=== PATIENT | male | born 1985 ===

== ENCOUNTER 2019-02-21 21:02 | Inpatient (IN) | payer MEDICAID, OTHER ==
[2019-02-21] MEDS ORDERED: Sodium Chloride 0.9% 1,000 ML IV STA (22:37)
[2019-02-21] MEDS ORDERED: Piperacillin/Tazobact 3.375 GM in Sodium Chloride 0.9% 100 ML IV STA (22:53)
--- NOTE | 2019-02-21 23:22 | ED PDOC ---
HPI: General Adult Time Seen by Provider: 02/21/19 22:35 Chief Complaint (Nursing): Fever Chief Complaint (Provider): Fever History Per: Patient History/Exam Limitations: no limitations Onset/Duration Of Symptoms: Days (2x) Current Symptoms Are (Timing): Still Present Severity: Moderate Additional Complaint(s): 33 year old male with a past medical history of morbid obesity and pre- diabetes presents to the ED for an evaluation of fevers and chills that started yesterday. Patient states that yesterday he started having generalized weakness, fevers, and chills. Patient states that today he had 4-5x episodes of non-bloody non-bilious vomiting. Patient states that he is unable to tolerate PO. Patient further reports that today he developed left leg redness and warmth, and a generalized itchy rash. Patient denies having diarrhea, cough, shortness of breath, chest pain, or taking medications prior to arrival. PMD: [facility] Past Medical History Reviewed: Historical Data, Nursing Documentation, Vital Signs Vital Signs: Last Vital Signs Temp 101.1 F H 02/21/19 21:19 Pulse 103 H 02/21/19 21:19 Resp 20 02/21/19 21:19 BP 164/75 H 02/21/19 21:19 Pulse Ox 95 02/21/19 21:19 MICHELLE Report Viewed: Yes - Medical History Other PMH: pre-diabetes, morbid obesity - Surgical History Surgical History: Appendectomy - Family History Family History: States: No Known Family Hx - Home Medications Home Medications: Ambulatory Orders Medication Instructions Recorded No Known Home Med 02/22/19 - Allergies Allergies/Adverse Reactions: Allergies Allergy/AdvReac Type Severity Reaction Status Date / Time No Known Allergies Allergy Verified 02/21/19 21:18 Review of Systems ROS Statement: Except As Marked, All Systems Reviewed And Found Negative Constitutional: Positive for: Fever, Chills, Weakness (generalized) Cardiovascular: Negative for: Chest Pain Respiratory: Negative for: Cough, Shortness of Breath Gastrointestinal: Positive for: Vomiting (4-5x episodes (non-bilious, non- bloody)). Negative for: Diarrhea Musculoskeletal: Positive for: Other (left leg redness and warmth) Skin: Positive for: Rash (generalized) Physical Exam - Reviewed Nursing Documentation Reviewed: Yes Vital Signs Reviewed: Yes - Physical Exam Appears: Positive for: Non-toxic, No Acute Distress. Negative for: Well (febrile, obese) Head Exam: Positive for: ATRAUMATIC, NORMOCEPHALIC Skin: Positive for: Warm, Dry, Rash (generalized erythema to the abdomen and buttocks.) Eye Exam: Positive for: Normal appearance Cardiovascular/Chest: Positive for: Tachycardia (regular rhythm) Respiratory: Positive for: Normal Breath Sounds Extremity: Positive for: Other (left lower extremity: warmth, erythema, indurat ion extending from ankle to mid-tibial surface.) Neurological/Psych: Positive for: Awake, Alert, Oriented (3x) - Laboratory Results Result Diagrams: 02/22/19 06:05 02/22/19 06:05 - ECG O2 Sat by Pulse Oximetry: 95 (RA) Pulse Ox Interpretation: Normal Medical Decision Making Medical Decision Makin:35 Initial impression: 33 year old male with fevers, chills, and cellulitis of the lower extremity. Initial plan: * US duplex Left lower extrm vein * CMP * lactic acid * udip * CBC with differential * ESR * PT/ PTT * blood culture * accucheck * influenza * urinalysis * IV NS 1,000 ml IV 1,000 mls/hr * toradol 30 mg IVP * tylenol 325 mg tab 975 mg PO * vancomycin inj 1 gm sodium chloride 0.9% 250 ml IVPB * zosyn 3.375 gm sodium chloride 0.9% 100 ml IV * reevaluation 00:33 US left lower extrm read and reviewed by radiologist Findings: Real-time ultrasound images of the deep venous system with Doppler evaluation. Normal compression, spontaneity and augmentation. Normal color Doppler. No intraluminal thrombus is seen. IMPRESSION: No evidence of deep venous thrombosis. 1:40 Labs show no clinically significant abnormalities with the exception of mild lymphocytosis. Report showed potassium and calcium abnormality which is provider's opinion appears dubious. Repeat BMP shows that this was a lab error. Patient to be admitted under for left lower extremity cellulitis and early sepsis. ScribeAttestation: Documented byMakenzie Jones, acting as a scribe for Vinny Ortiz MD. Provider ScribeAttestation: All medical record entries made by the Scribe were at my direction and personally dictated by me. I have reviewed the chart and agree that the record accurately reflects my personal performance of the history, physical exam, medical decision making, and the department course for this patient. I have also personally directed, reviewed, and agree with the discharge instructions and disposition. Disposition - Clinical Impression Clinical Impression: Cellulitis - Disposition Disposition Time: 00:45 Condition: STABLE - Pt Status Changed To: Hospital Disposition Of: Inpatient - Admit Certification Admit to Inpatient:: After my assessment, the patient will require hospitalization for at least two midnights. This is because of the severity of symptoms shown, intensity of services needed, and/or the medical risk in this patient being treated as an outpatient.
[2019-02-21] MEDS ORDERED: Vancomycin 1 g Inj ONE (23:41)
[2019-02-21] MEDS ORDERED: Piperacillin/Tazobact 3.375 gm Inj IVPB ONE (23:41)
[2019-02-22 00:19] LABS: BASO % 0.4 % (0.0-2.0); EOS % 0.2 % (0.0-4.0); HEMOGLOBIN 14.3 g/dL (12.0-18.0); LYMPH # 1.3 K/uL (1.0-4.3); LYMPH % 10.7 % (20.0-40.0); MEAN CORPUSCULAR HEMOGLOBIN 30.8 pg (27.0-31.0); MEAN CORPUSCULAR HGB CONC 34.2 g/dL (33.0-37.0); MEAN PLATELET VOLUME 8.5 fl (7.2-11.7); MONO % 8.5 % (0.0-10.0); NEUT # 9.4 K/uL (1.8-7.0); NEUT % 80.2 % (50.0-75.0); RBC 4.65 Mil/uL (4.40-5.90); RED CELL DISTRIBUTION WIDTH 14.3 % (11.5-14.5); WHITE BLOOD COUNT 11.7 K/uL (4.8-10.8)
[2019-02-22 00:23] LABS: INR 1.2; PROTHROMBIN TIME 13.2 Seconds (9.8-13.1)
[2019-02-22 00:25] LABS: PARTIAL THROMBOPLASTIN TIME 41.7 Seconds (25.6-37.1)
[2019-02-22 00:55] LABS: ALB/GLOB RATIO 1.2 (1.0-2.1); ALBUMIN 4.4 g/dL (3.5-5.0); ALT/SGPT 40 U/L (21-72); AST/SGOT 34 U/L (17-59); BLOOD UREA NITROGEN 18 mg/dl (9-20); CALCIUM 4.6 mg/dL (8.4-10.2); GFR NON-AFRICAN AMERICAN > 60
[2019-02-22] MEDS ORDERED: Dextrose 50% SYRINGE Inj (50 ml) IVP ONE ×2 (01:12)
[2019-02-22] MEDS ORDERED: Insulin Regular 100 units/ml IV ONE (01:12)
[2019-02-22] MEDS ORDERED: Sodium Bicarbonate 7.5% (0.9 MEQ/ML) 50ML INJ IV ONE (01:13)
[2019-02-22] MEDS ORDERED: Sod Polystyrene Sulf 15 gm/60 ml Susp PO STA (01:22)
[2019-02-22] MEDS ORDERED: Dextrose 50% SYRINGE Inj (50 ml) ONE (01:24)
[2019-02-22] MEDS ORDERED: Sodium Bicarbonate (8.4%) 50 Meq Syringe ONE (01:25)
[2019-02-22 01:31] LABS: BLOOD UREA NITROGEN 17 mg/dl (9-20); CALCIUM 8.2 mg/dL (8.4-10.2); GFR NON-AFRICAN AMERICAN > 60
--- NOTE | 2019-02-22 01:55 | CP.PCM.HP ---
<Deuce Joseph - Last Filed: 02/22/19 02:35> History of Present Illness - History of Present Illness History of Present Illness: 33 year old male with a PMH of morbid obesity and pre-diabetes presents to the ED c/o fevers and chills since Thursday. Patient states associated generalized weakness, fevers, sore throat and chills. He does not take his temp at home, but reports took some naproxen for fever. Also patient reports that yesterday he had 4-5x episodes nbnb vomiting and was unable to tolerate PO during the day. He reports that today he discovered left leg redness and pain since morning and also area is warm, he states generalized itchy rash for about 1 year ago. Otherwise he denies abdominal pain, cough, shortness of breath, chest pain, leg injury, insect bite, sick contacts, no urinary sx or changes in BM. PMD: [facility] PMH: Prediabetes, Morbid obesity PSH: appendectomy at age 10 FMH: father with HTN Meds: none NKDA SH: +etoh socially on wkends, denies tobacco or illicit drug use. ED course: - VS on arrival: BP 164/75; HR 103, febrile. - LE US duplex: negative for DVT; preliminar - CBC mild leukocytosis, CMP: hyperK, HypoCa, lactid acid wnl, ESR elevated - IV NS 1,000 ml IV bolus - toradol 30 mg IVP once, tylenol 975 mg PO once, vanco and zosyn IV once Present on Admission - Present on Admission Any Indicators Present on Admission: No Review of Systems - Constitutional Constitutional: Chills, Fever, Malaise. absent: Lethargy, Weight Loss - EENT Nose/Mouth/Throat: Sore Throat. absent: Nasal Congestion, Nasal Discharge, Throat Swelling - Cardiovascular Cardiovascular: absent: Chest Pain, Lightheadedness, Palpitations - Respiratory Respiratory: Cough. absent: Dyspnea, Wheezing - Gastrointestinal Gastrointestinal: Nausea, Vomiting. absent: Abdominal Pain, Diarrhea - Genitourinary Genitourinary: absent: Dysuria, Hematuria, Urinary Frequency - Integumentary Integumentary: Erythema, Pruritus, Rash, Swelling. absent: Jaundice Past Patient History - Past Social History Smoking Status: Never Smoked - PSYCHIATRIC Hx Substance Use: No - SURGICAL HISTORY Hx Appendectomy: Yes Meds Allergies/Adverse Reactions: Allergies Allergy/AdvReac Type Severity Reaction Status Date / Time No Known Allergies Allergy Verified 02/21/19 21:18 Physical Exam - Constitutional Appears: No Acute Distress, Other (Obese) - Head Exam Head Exam: NORMAL INSPECTION - Eye Exam Eye Exam: EOMI, PERRL. absent: Nystagmus - ENT Exam ENT Exam: Mucous Membranes Moist - Neck Exam Neck exam: Positive for: Full Rom, Normal Inspection. Negative for: Lymphadenopathy, Thyromegaly - Respiratory Exam Respiratory Exam: Clear to Auscultation Bilateral, NORMAL BREATHING PATTERN. absent: Respiratory Distress - Cardiovascular Exam Cardiovascular Exam: REGULAR RHYTHM, +S1, +S2. absent: Tachycardia, Systolic Murmur - GI/Abdominal Exam GI & Abdominal Exam: Normal Bowel Sounds. absent: Distended, Guarding, Tenderness Additional comments: Obese abdomen. - Extremities Exam Extremities exam: Positive for: pedal edema, pedal pulses present Additional comments: Left lower extremity: warmth,tender to light touch, erythema and induration extending from ankle to mid-tibial surface and medial aspect of leg. - Back Exam Back exam: NORMAL INSPECTION. absent: CVA tenderness (L), CVA tenderness (R) - Neurological Exam Neurological exam: Alert, CN II-XII Intact, Oriented x3 - Skin Skin Exam: Dry, Warm Additional comments: Several well demarked erythematous lesions over the abdomen and buttocks and left arm, itching. Results - Vital Signs Recent Vital Signs: Last Vital Signs Temp 98.6 F 02/22/19 00:52 Pulse 103 H 02/21/19 21:19 Resp 20 02/21/19 21:19 BP 164/75 H 02/21/19 21:19 Pulse Ox 95 02/22/19 01:47 - Labs Result Diagrams: 02/21/19 23:50 02/22/19 01:17 Labs: Laboratory Results - last 24 hr 02/21/19 02/21/19 02/21/19 23:50 23:50 23:50 WBC 11.7 H RBC 4.65 Hgb 14.3 Hct 41.9 MCV 90.0 MCH 30.8 MCHC 34.2 RDW 14.3 Plt Count 175 MPV 8.5 Neut % (Auto) 80.2 H Lymph % (Auto) 10.7 L [place] % (Auto) 8.5 Eos % (Auto) 0.2 Baso % (Auto) 0.4 Neut # (Auto) 9.4 H Lymph # (Auto) 1.3 [place] # (Auto) 1.0 H Eos # (Auto) 0.0 Baso # (Auto) 0.0 ESR 58 H PT INR APTT Sodium 136 Potassium 6.2 H* Chloride 101 Carbon Dioxide 22 Anion Gap 19 BUN 18 Creatinine 0.7 L Est GFR ( Amer) > 60 Est GFR (Non-Af Amer) > 60 POC Glucose (mg/dL) Random Glucose 131 H Lactic Acid Calcium 4.6 L* Total Bilirubin 0.6 AST 34 ALT 40 Alkaline Phosphatase 98 Total Protein 8.1 Albumin 4.4 Globulin 3.7 Albumin/Globulin Ratio 1.2 Influenza Typ A,B (EIA) Negative for flu a/b 02/21/19 02/21/19 02/22/19 23:50 23:50 00:08 WBC RBC Hgb Hct MCV MCH MCHC RDW Plt Count MPV Neut % (Auto) Lymph % (Auto) [place] % (Auto) Eos % (Auto) Baso % (Auto) Neut # (Auto) Lymph # (Auto) [place] # (Auto) Eos # (Auto) Baso # (Auto) ESR PT 13.2 H INR 1.2 APTT 41.7 H Sodium Potassium Chloride Carbon Dioxide Anion Gap BUN Creatinine Est GFR ( Amer) Est GFR (Non-Af Amer) POC Glucose (mg/dL) 149 H Random Glucose Lactic Acid 1.0 Calcium Total Bilirubin AST ALT Alkaline Phosphatase Total Protein Albumin Globulin Albumin/Globulin Ratio Influenza Typ A,B (EIA) 02/22/19 02/22/19 01:17 01:19 WBC RBC Hgb Hct MCV MCH MCHC RDW Plt Count MPV Neut % (Auto) Lymph % (Auto) [place] % (Auto) Eos % (Auto) Baso % (Auto) Neut # (Auto) Lymph # (Auto) [place] # (Auto) Eos # (Auto) Baso # (Auto) ESR PT INR APTT Sodium 136 Potassium 3.3 L Chloride 105 Carbon Dioxide 22 Anion Gap 12 BUN 17 Creatinine 0.7 L Est GFR ( Amer) > 60 Est GFR (Non-Af Amer) > 60 POC Glucose (mg/dL) Random Glucose 140 H Lactic Acid Calcium 8.2 L 8.1 L Total Bilirubin AST ALT Alkaline Phosphatase Total Protein Albumin Globulin Albumin/Globulin Ratio Influenza Typ A,B (EIA) Assessment & Plan - Assessment and Plan (Free Text) Assessment: 33 yo male patient with PMH fo Pre DM admitted due to LLE cellulitis/Sepsis. Plan: Left lower extremity cellulitis Sepsis - Admit to med/surg - VSS, febrile - WBC 11.7, ESR 58, lactic acid 1.0 - LLE US: negative for DVT - s/p vanco and zosyn IV in ED - continue vanco IV q12h - Tylenol prn for fever - Pain management - f/u blood culture - labs in am Hypokalemia/hypocalcemia - Initially K+ elevated - repleted - s/p IVF - f/u BMP Tinea corporis - Clotrimazole top BID h/o Prediabetes - diet controlled - f/u A1C Morbid Obesity PPx DVT: lovenox 60mg daily (weight based) GI: protonix Case seen and examined with Dr Juan. <Stan Juan - Last Filed: 02/22/19 09:20> Results - Vital Signs Recent Vital Signs: Last Vital Signs Temp 98.7 F 02/22/19 09:07 Pulse 79 02/22/19 09:07 Resp 20 02/22/19 09:07 BP 145/80 02/22/19 09:07 Pulse Ox 96 02/22/19 09:07 - Labs Result Diagrams: 02/22/19 06:05 02/22/19 06:05 Labs: Laboratory Results - last 24 hr 02/21/19 02/21/19 02/21/19 23:50 23:50 23:50 WBC 11.7 H RBC 4.65 Hgb 14.3 Hct 41.9 MCV 90.0 MCH 30.8 MCHC 34.2 RDW 14.3 Plt Count 175 MPV 8.5 Neut % (Auto) 80.2 H Lymph % (Auto) 10.7 L [place] % (Auto) 8.5 Eos % (Auto) 0.2 Baso % (Auto) 0.4 Neut # (Auto) 9.4 H Lymph # (Auto) 1.3 [place] # (Auto) 1.0 H Eos # (Auto) 0.0 Baso # (Auto) 0.0 ESR 58 H PT INR APTT Sodium 136 Potassium 6.2 H* Chloride 101 Carbon Dioxide 22 Anion Gap 19 BUN 18 Creatinine 0.7 L Est GFR ( Amer) > 60 Est GFR (Non-Af Amer) > 60 POC Glucose (mg/dL) Random Glucose 131 H Lactic Acid Calcium 4.6 L* Total Bilirubin 0.6 AST 34 ALT 40 Alkaline Phosphatase 98 Total Protein 8.1 Albumin 4.4 Globulin 3.7 Albumin/Globulin Ratio 1.2 Influenza Typ A,B (EIA) Negative for flu a/b 02/21/19 02/21/19 02/22/19 23:50 23:50 00:08 WBC RBC Hgb Hct MCV MCH MCHC RDW Plt Count MPV Neut % (Auto) Lymph % (Auto) [place] % (Auto) Eos % (Auto) Baso % (Auto) Neut # (Auto) Lymph # (Auto) [place] # (Auto) Eos # (Auto) Baso # (Auto) ESR PT 13.2 H INR 1.2 APTT 41.7 H Sodium Potassium Chloride Carbon Dioxide Anion Gap BUN Creatinine Est GFR ( Amer) Est GFR (Non-Af Amer) POC Glucose (mg/dL) 149 H Random Glucose Lactic Acid 1.0 Calcium Total Bilirubin AST ALT Alkaline Phosphatase Total Protein Albumin Globulin Albumin/Globulin Ratio Influenza Typ A,B (EIA) 02/22/19 02/22/19 02/22/19 01:17 01:19 06:05 WBC 9.3 RBC 4.27 L Hgb 13.3 Hct 39.1 MCV 91.6 MCH 31.2 H MCHC 34.0 RDW 14.3 Plt Count 157 MPV 8.2 Neut % (Auto) 75.3 H Lymph % (Auto) 13.5 L [place] % (Auto) 10.6 H Eos % (Auto) 0.3 Baso % (Auto) 0.3 Neut # (Auto) 7.0 Lymph # (Auto) 1.3 [place] # (Auto) 1.0 H Eos # (Auto) 0.0 Baso # (Auto) 0.0 ESR PT INR APTT Sodium 136 Potassium 3.3 L Chloride 105 Carbon Dioxide 22 Anion Gap 12 BUN 17 Creatinine 0.7 L Est GFR ( Amer) > 60 Est GFR (Non-Af Amer) > 60 POC Glucose (mg/dL) Random Glucose 140 H Lactic Acid Calcium 8.2 L 8.1 L Total Bilirubin AST ALT Alkaline Phosphatase Total Protein Albumin Globulin Albumin/Globulin Ratio Influenza Typ A,B (EIA) 02/22/19 06:05 WBC RBC Hgb Hct MCV MCH MCHC RDW Plt Count MPV Neut % (Auto) Lymph % (Auto) [place] % (Auto) Eos % (Auto) Baso % (Auto) Neut # (Auto) Lymph # (Auto) [place] # (Auto) Eos # (Auto) Baso # (Auto) ESR PT INR APTT Sodium 138 Potassium 3.5 L Chloride 105 Carbon Dioxide 23 Anion Gap 14 BUN 17 Creatinine 0.6 L Est GFR ( Amer) > 60 Est GFR (Non-Af Amer) > 60 POC Glucose (mg/dL) Random Glucose 119 H Lactic Acid Calcium 8.3 L Total Bilirubin AST ALT Alkaline Phosphatase Total Protein Albumin Globulin Albumin/Globulin Ratio Influenza Typ A,B (EIA) Attending/Attestation - Attestation I have personally seen and examined this patient.: Yes I have fully participated in the care of the patient.: Yes I have reviewed all pertinent clinical information: Yes Notes (Text): 02/22/19 09:09 i saw, examined and discussed this patient with Dr Reese Joseph. I agree with the assessment and plan outlined. This is a 33 years old Obese male with hx of being prediabetic, comes with painful erythema 8cm in diameter at the susan-medial distal left leg. This is associated with fever and chills. The exam showed erythematous streaks ascending the medial leg to the medial thighs. The patient is being treated for cellulitis with lymphangitis and Sepsis. He received Vancomycin and Zosyn in the ED. We will continue with Vancomycin because of the possibility of MRSA . There is no drainage for wound culture. Follow blood culture and we will do a MRSA nasal swab. We will also treat the Tinea Corporis with Clotrimazole. The patient has Hyperglycemia. Follow HbA1c Stan Juan MD
[2019-02-22] MEDS ORDERED: Potassium Chloride 20 mEq ER Tab PO ONE ×2 (02:46→13:48)
[2019-02-22 06:15] LABS: BASO % 0.3 % (0.0-2.0); EOS % 0.3 % (0.0-4.0); HEMOGLOBIN 13.3 g/dL (12.0-18.0); LYMPH # 1.3 K/uL (1.0-4.3); LYMPH % 13.5 % (20.0-40.0); MEAN CELL VOLUME 91.6 fl (80.0-94.0); MEAN CORPUSCULAR HEMOGLOBIN 31.2 pg (27.0-31.0); MEAN PLATELET VOLUME 8.2 fl (7.2-11.7); MONO % 10.6 % (0.0-10.0); NEUT % 75.3 % (50.0-75.0); NRBC % 0.1 % (0.0-0.0); RBC 4.27 Mil/uL (4.40-5.90); RED CELL DISTRIBUTION WIDTH 14.3 % (11.5-14.5); WHITE BLOOD COUNT 9.3 K/uL (4.8-10.8)
[2019-02-22 06:28] LABS: BLOOD UREA NITROGEN 17 mg/dl (9-20); CALCIUM 8.3 mg/dL (8.4-10.2); GFR NON-AFRICAN AMERICAN > 60
[2019-02-22] MEDS: Enoxaparin 60 mg Syringe SC SCH (08:33)
[2019-02-22] MEDS ORDERED: Enoxaparin 40 mg Syringe SC SCH (09:00)
[2019-02-22 09:08] VITALS: RESP 20
--- NOTE | 2019-02-22 10:03 | CARD ---
APPROVED REPORT Date of service: 02/22/2019 EKG Measurement Heart [id number] <Conclusion> Normal sinus rhythm Nonspecific T wave abnormality Abnormal ECG
--- NOTE | 2019-02-22 11:19 | CP.PCM.PN ---
<Nichole Magana - Last Filed: 02/22/19 13:13> Subjective - Date & Time of Evaluation Date of Evaluation: 02/22/19 Time of Evaluation: 13:14 - Subjective Subjective: Pt is a 33yo M hx of prediabetes, morbid obesity admitted due to cellulitis of L lower extremity, sepsis. Reports he is feeling well. Reports L lower extremity is painful. Pt also reports diffuse pruritic body rash in circular pattern for last 3 months, has been using cream without relief. Tolerating oral take. Denies F/C/CP/SOB/N/V/D/C Objective - Vital Signs/Intake and Output Vital Signs (last 24 hours): Temp Pulse Resp BP Pulse Ox 98.7 F 79 20 145/80 96 02/22/19 09:07 02/22/19 09:07 02/22/19 09:07 02/22/19 09:07 02/22/19 09:07 - Medications Medications: Current Medications Acetaminophen (Tylenol 325mg Tab) 650 mg PO Q6 PRN PRN Reason: Pain, Mild (1-3) Acetaminophen (Tylenol 325mg Tab) 650 mg PO Q6 PRN PRN Reason: Fever >100.4 F Clotrimazole (Lotrimin 1% Cream) 1 applic TOP BID [facility] Last Admin: 02/22/19 08:33 Dose: 1 applic Enoxaparin Sodium (Lovenox) 60 mg SC DAILY [facility]; Protocol Last Admin: 02/22/19 08:33 Dose: 60 mg Vancomycin HCl 1 gm/ Sodium (Chloride) 250 mls @ 166.667 mls/hr IVPB Q12 [facility]; Protocol Last Admin: 02/22/19 09:20 Dose: 166.667 mls/hr Itraconazole (Sporanox) 200 mg PO DAILY [facility]; Protocol Stop: 03/01/19 10:46 Ketorolac Tromethamine (Toradol) 15 mg IVP Q6 PRN PRN Reason: Pain, moderate (4-7) Ketorolac Tromethamine (Toradol) 30 mg IVP Q6 PRN PRN Reason: Pain, severe (8-10) Ondansetron HCl (Zofran Inj) 4 mg IVP Q6 PRN PRN Reason: Nausea/Vomiting Pantoprazole Sodium (Protonix Inj) 40 mg IVP DAILY [facility] Last Admin: 02/22/19 08:33 Dose: 40 mg - Labs Labs: 02/22/19 06:05 02/22/19 06:05 PT 13.2 Seconds (9.8-13.1) H 02/21/19 23:50 INR 1.2 02/21/19 23:50 APTT 41.7 Seconds (25.6-37.1) H 02/21/19 23:50 - Constitutional Appears: Non-toxic, No Acute Distress - Head Exam Head Exam: ATRAUMATIC - Eye Exam Eye Exam: EOMI - ENT Exam ENT Exam: Mucous Membranes Moist - Respiratory Exam Respiratory Exam: Clear to Ausculation Bilateral. absent: Rales, Rhonchi, Wheezes - Cardiovascular Exam Cardiovascular Exam: RRR, +S1, +S2 - GI/Abdominal Exam GI & Abdominal Exam: Soft, Normal Bowel Sounds. absent: Tenderness Additional comments: indurated panus inguinal region - Extremities Exam Extremities Exam: Calf Tenderness, Tenderness Additional comments: LLE erythema, swelling,tender to palpation, warm. No drainage. - Neurological Exam Neurological Exam: Alert, Awake - Skin Additional comments: Diffuse body circular raised rash with central clearing. Assessment and Plan - Assessment and Plan (Free Text) Assessment: Pt is a 33 yo male patient with PMH for Pre DM morbid obesity admitted due to LLE cellulitis/Sepsis. Plan: Left lower extremity cellulitis Sepsis - WBC 9.3, ESR 58, lactic acid 1.0 - LLE US: negative for DVT - s/p vanco and zosyn IV in ED - continue vanco IV q12h - Tylenol prn for fever - Pain management - f/u blood culture and MRSA - f/u CBC, vanc trough in AM Hypokalemia/hypocalcemia - K 3.5 - KCL 20mg PO - s/p IVF - f/u BMP Tinea corporis - Itraconazole 200mg PO daily - Clotrimazole top BID h/o Prediabetes - diet controlled - Hga1c 6.3 Morbid Obesity -discussed diet and excersize Diet Regular GI PPx -protonix DVT ppx -lovenox 60mg daily SC <Lila Joseph - Last Filed: 02/25/19 20:50> Objective - Vital Signs/Intake and Output Vital Signs (last 24 hours): Temp Pulse Resp BP Pulse Ox 98 F 75 20 126/83 98 04/24/19 08:19 02/23/19 08:19 02/23/19 08:19 02/23/19 08:19 02/23/19 08:19 - Labs Labs: 02/23/19 08:40 02/23/19 08:40 PT 13.2 Seconds (9.8-13.1) H 02/21/19 23:50 INR 1.2 02/21/19 23:50 APTT 41.7 Seconds (25.6-37.1) H 02/21/19 23:50 Attending/Attestation - Attestation I have personally seen and examined this patient.: Yes I have fully participated in the care of the patient.: Yes I have reviewed all pertinent clinical information, including history, physical exam and plan: Yes Notes (Text): agree with findings and plan as above.
--- NOTE | 2019-02-22 13:27 | US ---
Date of service: 02/22/2019 HISTORY: left LE swelling. PRIORS: None. FINDINGS: 2-D, color and duplex Doppler analysis of the lower extremity venous circulation using routine protocol from the femoral veins through the popliteal veins. Venous compressibility: Normal. Flow and augmentation patterns: Normal. Visualized veins upper third of calf: Normal. Lopes cyst: None. Note is made of multiple enlarged left inguinal lymph nodes measuring up to 4 mm in cortical thickness. Likely reactive. IMPRESSION: No sonographic or Doppler evidence for DVT in left lower extremity. Left inguinal lymphadenopathy noted. The preliminary findings for this examination were reported by [facility] at 12:33 a.m. on 02/22/2019. There is concurrence of this report with the preliminary findings.
[2019-02-22 20:52] VITALS: BMI 48.9
[2019-02-23 08:19] VITALS: BP 126/83; PULSE 75; TEMP 98; O2SAT 98
[2019-02-23] MEDS: Enoxaparin 60 mg Syringe SC SCH (08:25)
[2019-02-23 09:13] LABS: BASO # 0.1 K/uL (0.0-0.2); BASO % 0.8 % (0.0-2.0); EOS # 0.2 K/uL (0.0-0.7); EOS % 2.7 % (0.0-4.0); HEMOGLOBIN 13.7 g/dL (12.0-18.0); LYMPH # 1.6 K/uL (1.0-4.3); LYMPH % 24.8 % (20.0-40.0); MEAN CELL VOLUME 90.6 fl (80.0-94.0); MEAN CORPUSCULAR HEMOGLOBIN 30.4 pg (27.0-31.0); MEAN CORPUSCULAR HGB CONC 33.5 g/dL (33.0-37.0); MEAN PLATELET VOLUME 8.3 fl (7.2-11.7); MONO # 0.8 K/uL (0.0-0.8); MONO % 11.5 % (0.0-10.0); NEUT % 60.2 % (50.0-75.0); NRBC % 0.1 % (0.0-0.0); RBC 4.53 Mil/uL (4.40-5.90); RED CELL DISTRIBUTION WIDTH 14.4 % (11.5-14.5); WHITE BLOOD COUNT 6.6 K/uL (4.8-10.8)
[2019-02-23 09:23] LABS: BLOOD UREA NITROGEN 13 mg/dl (9-20); CALCIUM 8.8 mg/dL (8.4-10.2); GFR NON-AFRICAN AMERICAN > 60
[2019-02-23] MEDS ORDERED: Vancomycin 1.5 GM in Sodium Chloride 0.9% 500 ML IVPB SCH (09:57)
--- NOTE | 2019-02-23 10:23 | CP.PCM.PN ---
Objective - Vital Signs/Intake and Output Vital Signs (last 24 hours): Temp Pulse Resp BP Pulse Ox 98 F 75 20 126/83 98 02/23/19 08:19 02/23/19 08:19 02/23/19 08:19 02/23/19 08:19 02/23/19 08:19 - Medications Medications: Current Medications Acetaminophen (Tylenol 325mg Tab) 650 mg PO Q6 PRN PRN Reason: Pain, Mild (1-3) Acetaminophen (Tylenol 325mg Tab) 650 mg PO Q6 PRN PRN Reason: Fever >100.4 F Enoxaparin Sodium (Lovenox) 60 mg SC DAILY [facility]; Protocol Last Admin: 02/23/19 08:25 Dose: 60 mg Vancomycin HCl 1.5 gm/ Sodium (Chloride) 500 mls @ 250 mls/hr IVPB Q12 [facility]; Protocol Itraconazole (Sporanox) 200 mg PO DAILY [facility]; Protocol Stop: 03/01/19 10:46 Last Admin: 02/23/19 08:26 Dose: 200 mg Ketorolac Tromethamine (Toradol) 15 mg IVP Q6 PRN PRN Reason: Pain, moderate (4-7) Last Admin: 02/22/19 19:31 Dose: 15 mg Ketorolac Tromethamine (Toradol) 30 mg IVP Q6 PRN PRN Reason: Pain, severe (8-10) Ondansetron HCl (Zofran Inj) 4 mg IVP Q6 PRN PRN Reason: Nausea/Vomiting Pantoprazole Sodium (Protonix Inj) 40 mg IVP DAILY [facility] Last Admin: 02/23/19 08:26 Dose: 40 mg - Labs Labs: 02/23/19 08:40 02/23/19 08:40 PT 13.2 Seconds (9.8-13.1) H 02/21/19 23:50 INR 1.2 02/21/19 23:50 APTT 41.7 Seconds (25.6-37.1) H 02/21/19 23:50
--- NOTE | 2019-02-23 11:01 | CP.PCM.DIS ---
<Nichole Magana - Last Filed: 02/23/19 14:29> Provider - Provider Date of Admission: 02/22/19 00:53 Attending physician: Stan Juan Primary care physician: Maximus Melo Time Spent in preparation of Discharge (in minutes): 10 Diagnosis - Discharge Diagnosis (1) Cellulitis Status: Acute Comment: continue with outpt clindamycin. Follow up with Maximus melo in 1 week (2) Tinea corporis Status: Acute Comment: continue with outpt itraconazole. F/u with Maximus Melo in 1 week Hospital Course - Lab Results Lab Results: Micro Results 02/21/19 23:55 Blood-Venous Blood Culture - Preliminary NO GROWTH AFTER 24 HOURS 02/21/19 23:30 Blood-Venous Blood Culture - Preliminary NO GROWTH AFTER 24 HOURS Most Recent Lab Values WBC 6.6 K/uL (4.8-10.8) 02/23/19 08:40 RBC 4.53 Mil/uL (4.40-5.90) 02/23/19 08:40 Hgb 13.7 g/dL (12.0-18.0) 02/23/19 08:40 Hct 41.0 % (35.0-51.0) 02/23/19 08:40 MCV 90.6 fl (80.0-94.0) 02/23/19 08:40 MCH 30.4 pg (27.0-31.0) 02/23/19 08:40 MCHC 33.5 g/dL (33.0-37.0) 02/23/19 08:40 RDW 14.4 % (11.5-14.5) 02/23/19 08:40 Plt Count 196 K/uL (130-400) 02/23/19 08:40 MPV 8.3 fl (7.2-11.7) 02/23/19 08:40 Neut % (Auto) 60.2 % (50.0-75.0) 02/23/19 08:40 Lymph % (Auto) 24.8 % (20.0-40.0) 02/23/19 08:40 Delta % (Auto) 11.5 % (0.0-10.0) H 02/23/19 08:40 Eos % (Auto) 2.7 % (0.0-4.0) 02/23/19 08:40 Baso % (Auto) 0.8 % (0.0-2.0) 02/23/19 08:40 Neut # (Auto) 4.0 K/uL (1.8-7.0) 02/23/19 08:40 Lymph # (Auto) 1.6 K/uL (1.0-4.3) 02/23/19 08:40 Delta # (Auto) 0.8 K/uL (0.0-0.8) 02/23/19 08:40 Eos # (Auto) 0.2 K/uL (0.0-0.7) 02/23/19 08:40 Baso # (Auto) 0.1 K/uL (0.0-0.2) 02/23/19 08:40 ESR 58 mm/hr (0-15) H 02/21/19 23:50 PT 13.2 Seconds (9.8-13.1) H 02/21/19 23:50 INR 1.2 02/21/19 23:50 APTT 41.7 Seconds (25.6-37.1) H 02/21/19 23:50 Sodium 137 mmol/l (132-148) 02/23/19 08:40 Potassium 3.8 MMOL/L (3.6-5.0) 02/23/19 08:40 Chloride 105 mmol/L (98-107) 02/23/19 08:40 Carbon Dioxide 24 mmol/L (22-30) 02/23/19 08:40 Anion Gap 12 (10-20) 02/23/19 08:40 BUN 13 mg/dl (9-20) 02/23/19 08:40 Creatinine 0.6 mg/dl (0.8-1.5) L 02/23/19 08:40 Est GFR ( Amer) > 60 02/23/19 08:40 Est GFR (Non-Af Amer) > 60 02/23/19 08:40 POC Glucose (mg/dL) 149 mg/dL (65-110) H 02/22/19 00:08 Random Glucose 117 mg/dL (75-110) H 02/23/19 08:40 Hemoglobin A1c 6.3 % (4.2-6.5) 02/22/19 06:05 Lactic Acid 1.0 mmol/L (0.7-2.1) 02/21/19 23:50 Calcium 8.8 mg/dL (8.4-10.2) 02/23/19 08:40 Total Bilirubin 0.6 mg/dl (0.2-1.3) 02/21/19 23:50 AST 34 U/L (17-59) 02/21/19 23:50 ALT 40 U/L (21-72) 02/21/19 23:50 Alkaline Phosphatase 98 U/L (38-126) 02/21/19 23:50 Total Protein 8.1 G/DL (6.3-8.2) 02/21/19 23:50 Albumin 4.4 g/dL (3.5-5.0) 02/21/19 23:50 Globulin 3.7 gm/dL (2.2-3.9) 02/21/19 23:50 Albumin/Globulin Ratio 1.2 (1.0-2.1) 02/21/19 23:50 Vancomycin Trough < 5.0 ug/mL (5.0-10.0) L 02/23/19 08:40 Influenza Typ A,B (EIA) Negative for flu a/b (NEGATIVE) 02/21/19 23:50 - Hospital Course Hospital Course: Pt is a 33yo M hx of prediabetes, morbid obesity admitted due to cellulitis of L lower extremity, sepsis, and tinea corporis on 02/22/19. L lower extremity was painful with calf tenderness and he reported a diffuse pruritic body rash in circular pattern for last 3 months, had been using cream without relief. IN ED: LE U/S negative for DVT, CBC mild leukocytosis, CMP: hyperK, HypoCa, lactid acid wnl, influenza negative, ESR 58, received vanco and zosyn, blood cx no growth at 24hrs, MRSA nose swab pending. Pt doing well and can continue outpt therapy. Pt is hemodynamically stable for discharge with clindamycin, itrazonazole, omeprazole, and ibuprofen, follow up with [facility] in 1 week. Discharge Exam - Head Exam Head Exam: ATRAUMATIC, NORMAL INSPECTION - Eye Exam Eye Exam: EOMI - ENT Exam ENT Exam: Mucous Membranes Moist - Respiratory Exam Respiratory Exam: Clear to PA & Lateral. absent: Rales, Rhonchi, Wheezes - Cardiovascular Exam Cardiovascular Exam: RRR, +S1, +S2 - GI/Abdominal Exam GI & Abdominal Exam: Normal Bowel Sounds. absent: Tenderness - Extremities Exam Additional comments: LLE erythema, swelling,tender to palpation, warm. No drainage. - Skin Additional comments: Diffuse body circular raised rash with central clearing. Discharge Plan - Discharge Medications Prescriptions: Clindamycin [Cleocin] 300 mg PO Q6H 8 Days #32 cap Ibuprofen [Motrin Tab] 600 mg PO Q8H #20 tab Itraconazole [Sporanox] 200 mg PO DAILY #10 cap Omeprazole 40 mg PO DAILY #10 capsule.dr - Follow Up Plan Condition: STABLE Disposition: HOME/ ROUTINE Instructions: Fungal Skin Rash (DC), Cellulitis (DC) Additional Instructions: hacer mayo en [facility] [place] dentro de 1 semana Referrals: [place] [facility] [Outside] [facility] [Outside] <Lila Joseph - Last Filed: 02/25/19 20:49> Provider - Provider Date of Admission: 02/22/19 00:53 Attending physician: Stan Juan [facility] Course - Lab Results Lab Results: Micro Results 02/21/19 23:55 Blood-Venous Blood Culture - Preliminary NO GROWTH AFTER 3 DAYS 02/21/19 23:30 Blood-Venous Blood Culture - Preliminary NO GROWTH AFTER 3 DAYS 02/22/19 09:30 Nose MRSA Culture (Admit) - Final MRSA NOT DETECTED Most Recent Lab Values WBC 6.6 K/uL (4.8-10.8) 02/23/19 08:40 RBC 4.53 Mil/uL (4.40-5.90) 02/23/19 08:40 Hgb 13.7 g/dL (12.0-18.0) 02/23/19 08:40 Hct 41.0 % (35.0-51.0) 02/23/19 08:40 MCV 90.6 fl (80.0-94.0) 02/23/19 08:40 MCH 30.4 pg (27.0-31.0) 02/23/19 08:40 MCHC 33.5 g/dL (33.0-37.0) 02/23/19 08:40 RDW 14.4 % (11.5-14.5) 02/23/19 08:40 Plt Count 196 K/uL (130-400) 02/23/19 08:40 MPV 8.3 fl (7.2-11.7) 02/23/19 08:40 Neut % (Auto) 60.2 % (50.0-75.0) 02/23/19 08:40 Lymph % (Auto) 24.8 % (20.0-40.0) 02/23/19 08:40 Delta % (Auto) 11.5 % (0.0-10.0) H 02/23/19 08:40 Eos % (Auto) 2.7 % (0.0-4.0) 02/23/19 08:40 Baso % (Auto) 0.8 % (0.0-2.0) 02/23/19 08:40 Neut # (Auto) 4.0 K/uL (1.8-7.0) 02/23/19 08:40 Lymph # (Auto) 1.6 K/uL (1.0-4.3) 02/23/19 08:40 Delta # (Auto) 0.8 K/uL (0.0-0.8) 02/23/19 08:40 Eos # (Auto) 0.2 K/uL (0.0-0.7) 02/23/19 08:40 Baso # (Auto) 0.1 K/uL (0.0-0.2) 02/23/19 08:40 ESR 58 mm/hr (0-15) H 02/21/19 23:50 PT 13.2 Seconds (9.8-13.1) H 02/21/19 23:50 INR 1.2 02/21/19 23:50 APTT 41.7 Seconds (25.6-37.1) H 02/21/19 23:50 Sodium 137 mmol/l (132-148) 02/23/19 08:40 Potassium 3.8 MMOL/L (3.6-5.0) 02/23/19 08:40 Chloride 105 mmol/L (98-107) 02/23/19 08:40 Carbon Dioxide 24 mmol/L (22-30) 02/23/19 08:40 Anion Gap 12 (10-20) 02/23/19 08:40 BUN 13 mg/dl (9-20) 02/23/19 08:40 Creatinine 0.6 mg/dl (0.8-1.5) L 02/23/19 08:40 Est GFR ( Amer) > 60 02/23/19 08:40 Est GFR (Non-Af Amer) > 60 02/23/19 08:40 POC Glucose (mg/dL) 149 mg/dL (65-110) H 02/22/19 00:08 Random Glucose 117 mg/dL (75-110) H 02/23/19 08:40 Hemoglobin A1c 6.3 % (4.2-6.5) 02/22/19 06:05 Lactic Acid 1.0 mmol/L (0.7-2.1) 02/21/19 23:50 Calcium 8.8 mg/dL (8.4-10.2) 02/23/19 08:40 Total Bilirubin 0.6 mg/dl (0.2-1.3) 02/21/19 23:50 AST 34 U/L (17-59) 02/21/19 23:50 ALT 40 U/L (21-72) 02/21/19 23:50 Alkaline Phosphatase 98 U/L (38-126) 02/21/19 23:50 Total Protein 8.1 G/DL (6.3-8.2) 02/21/19 23:50 Albumin 4.4 g/dL (3.5-5.0) 02/21/19 23:50 Globulin 3.7 gm/dL (2.2-3.9) 02/21/19 23:50 Albumin/Globulin Ratio 1.2 (1.0-2.1) 02/21/19 23:50 Vancomycin Trough < 5.0 ug/mL (5.0-10.0) L 02/23/19 08:40 Influenza Typ A,B (EIA) Negative for flu a/b (NEGATIVE) 02/21/19 23:50 Attending/Attestation - Attestation I have personally seen and examined this patient.: Yes I have fully participated in the care of the patient.: Yes I have reviewed all pertinent clinical information, including history, physical exam and plan: Yes Notes (Text): agree with findings and plan as above.
== END 2019-02-23 15:30 | disposition home or self-care (01) | DRG 720 ==
LOC: H.ER 21:02 → H.ERHOLD 02-22 00:53 → H.MEDSURG1 02-22 02:28
PROVIDERS: ADMIT Internal Medicine; ATTEND Internal Medicine
DX: A41.9 Sepsis, unspecified organism (principal); L03.116 Cellulitis of left lower limb; Z68.42 Body mass index [BMI] 45.0-49.9, adult; E87.6 Hypokalemia; E83.51 Hypocalcemia; E66.01 Morbid (severe) obesity due to excess calories; B35.4 Tinea corporis; D72.820 Lymphocytosis (symptomatic); R73.03 Prediabetes